=== PATIENT | female | born 1955 | race Caucasian/White ===

== ENCOUNTER → 2023-10-27 17:24 | Outpatient (REF) | payer MEDICARE, SELFPAY | LOC: WDC 17:24 | PROVIDERS: ATTENDING PHYSICIAN Family Medicine | DX: Z12.31 Encounter for screening mammogram for malignant neoplasm of breast (principal) | CPT/HCPCS: 77063; 77067 ==

== ENCOUNTER → 2023-11-27 08:42 | Outpatient (REF) | payer MEDICARE, SELFPAY | LOC: RCS 08:42 | PROVIDERS: ATTENDING PHYSICIAN Family Medicine | DX: I10 Essential (primary) hypertension (principal); R94.31 Abnormal electrocardiogram [ECG] [EKG] | CPT/HCPCS: 93306 ==